=== PATIENT | male | born 1970 | race Caucasian/White ===

== ENCOUNTER → 2024-06-11 | Day surgery (SDC) | payer OTHER ==
[~2024-06-11] MED LIST: GLUCAGON FOR INJ 1 MG VIAL ONE; HYOSCYAMINE SULFATE 0.5 MG/ML INJ ONE; IBUPROFEN100 MG/5 M PO; LIDOCAINE HCL 2% LOCAL INJ 5 ML SDV VIAL INJ ONE; PROPOFOL IV EMULSION 50 ML IV ONE
[2024-06-11] MEDS: LACTATED RINGER'S 1,000 ML ONE (13:00)
[2024-06-11 13:21] VITALS: PULSE 79; RESP 18; O2SAT 96
[2024-06-11] MEDS: ALBUTEROL/IPRATROPIUM 3 ML NEB ONE (13:22)
[2024-06-11 14:41] VITALS: TEMP 97.6
[2024-06-11 15:00] VITALS: BP 130/90; PULSE 91; RESP 18; O2SAT 99
== END | disposition home or self-care (01) ==
LOC: OR 12:38 → EDBD 14:30
PROVIDERS: ATTEND Internal Medicine Gastroenterology
DX: D12.8 Benign neoplasm of rectum (principal); K63.5 Polyp of colon; K64.8 Other hemorrhoids; K57.30 Diverticulosis of large intestine without perforation or abscess without bleeding; K92.1 Melena; F17.210 Nicotine dependence, cigarettes, uncomplicated; E66.01 Morbid (severe) obesity due to excess calories; Z71.3 Dietary counseling and surveillance; Z68.29 Body mass index [BMI] 29.0-29.9, adult; R03.0 Elevated blood-pressure reading, without diagnosis of hypertension; Z86.19 Personal history of other infectious and parasitic diseases; Z01.810 Encounter for preprocedural cardiovascular examination
CPT/HCPCS: 45385; 93005; 94799; J1610; J1980; J2003; J2704; J7121; 45380